=== PATIENT | male | born 1985 | race Caucasian/White ===

== ENCOUNTER 2025-01-29 11:23 | Inpatient (IN) | payer SELFPAY ==
[2025-01-29] VITALS (10 sets, daily range): BP systolic 120–133; BP diastolic 73–99; PULSE 86–131; TEMP 36.7–37.4; O2SAT 96–99; BMI 28.7; BMI 28.1
--- NOTE | 2025-01-29 11:50 | XR_ITS ---
The [address] [address] Patient Name: OLIVA MANN MRN: [id number] date: 1985 Sex: M Assigned Patient Location: ER Current Patient Location: ED.MAIN Accession/Order Number: [id number] Exam Date: 01/29/2025 12:15 Report Date: 01/29/2025 12:36 At the request of: STEPHEN VALENZUELA DO Procedure: XR foot LT 2V XR foot LT 2V 01/29/2025 12:19 PM SIGNS AND SYMPTOMS: ^cellulitis, r/o gas left ankle and foot swelling and redness PROTOCOL: Frontal and lateral radiographs of the left foot COMPARISON: None FINDINGS: The bones are in anatomic alignment. There is no evidence of acute displaced fracture. There is soft tissue swelling which is greatest over the dorsum of the left foot. No subcutaneous emphysema is visualized. No osteolytic or bony destructive process. XR/XR foot LT 2V IMPRESSION: Soft tissue swelling is noted greatest along the dorsum of the foot. No underlying osteolytic or bony destructive process. No subcutaneous emphysema. Impression dictated by: Jarod Hernandez M.D. 01/29/2025 12:36 PM Dictation Location: [place] [address] Electronically authenticated by: [id number] Y Date: 01/29/2025 12:36
[2025-01-29 12:12] LABS: Hematocrit 37.6 % (42.0-54.0); Hemoglobin 12.8 g/dL (14.0-18.0); Immature Granulocytes Abs Auto 0.09 10^3/uL (0.00-0.03); Immature Granulocytes Pct Auto 0.5 % (0.0-0.5); Lymphocytes Absolute Auto 2.0 10^3/uL (1.2-3.8); Mean Corpuscular HGB Conc 34.0 g/dL (29.9-35.2); Mean Corpuscular Hemoglobin 29.0 pg (25.9-34.0); Mean Corpuscular Volume 85.3 fL (80.0-94.0); Platelet Count 397 10^3/uL (150-450); Red Blood Count 4.41 10^6/uL (4.70-6.10); White Blood Count 19.5 10^3/uL (4.0-11.0)
[2025-01-29] MEDS: HYDROMORPHONE HCL 1 MG/ML CARTRIDGE IV (12:17)
[2025-01-29] MEDS: VANCOMYCIN HCL 2,000 MG in 0.9 % SODIUM CHLORIDE 500 ML 250 MG IV (12:18)
[2025-01-29 12:27] LABS: Anion Gap 19.5; Blood Urea Nitrogen 29.0 mg/dL (7.0-18.0); Calcium 9.0 mg/dL (8.5-10.1); Carbon Dioxide 22.2 mmol/L (21.0-32.0); Chloride 97 mmol/L (98-107); Estimated GFR (African America >60 (>=60 mL/min/1.73m^2); Estimated GFR (Non-African Ame 58 (>=60 mL/min/1.73m^2); Glucose 97 mg/dL (74-106); Potassium 3.7 mmol/L (3.5-5.1); Sodium 135 mmol/L (136-145)
[2025-01-29 12:33] LABS: Lactate/Lactic Acid 1.1 mmol/L (0.4-2.0)
[2025-01-29] MEDS: 0.9 % SODIUM CHLORIDE 1,000 ML 1000 ML IV (13:01)
--- NOTE | 2025-01-29 13:28 | PM.HP ---
HPI H&P: HPI History of Present Illness Chief complaint: L LEG PAIN, LLE CELLULITIS Narrative: Patient is a 39-year-old male with medical history as listed below presented to the ER due to worsening left lower extremity pain and swelling over the past 2 to 3 days. Patient denies any fevers or chills or nausea or vomiting or chest pain or shortness of breath however he does report that he was feeling hot at the house, he was having difficulty bearing weight on his left lower extremity. Patient denies any recent injury or wounds or twisting to his ankle or falls or trauma. he decided to come here for further evaluation. Here in the ER, patient noted tachycardic, noted with leukocytosis up to 19.5 . BUN 29 creatinine 1.37. He was noted with left foot and ankle and left brenner below the knee erythema and edema, CRP 18.64, x-ray of the foot showed soft tissue swelling with no evidence of fracture or dislocation or subcutaneous emphysema. Patient was given antibiotics. Blood cultures were collected. Decision was made to admit him for further evaluation and management. 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 Opioid HPI Opioid Management Most Recent Pain and Opioid Data: Last Pain Scale 8 Today, 14:31 Last Pain Assessment Today, 14:31 Review of Systems ROS Status of ROS 10 or more systems reviewed and unremarkable except as noted in history and below PFSH PFSH Medical History (Updated 01/29/25 @ 13:35 by Suki Cabrera) GERD (gastroesophageal reflux disease) ?K21.9 - Gastro-esophageal reflux disease without esophagitis (ICD-10) Surgical History (Updated 01/29/25 @ 13:35 by Suki Cabrera) Hx of inguinal hernia repair ?Z98.890 - Other specified postprocedural states (ICD-10) ?Z87.19 - Personal history of other diseases of the digestive system (ICD-10) Social History (Updated 01/29/25 @ 13:40 by Suki Cabrera) Within the past year, how often did you have a drink containing alcohol: monthly or less Within the past year, how many standard drinks containing alcohol did you have on a typical day: 1 or 2 Within the past year, how often did you have six or more drinks on one occasion: never Total score: 0 Score interpretation: A score less than 4 is consistent with normal alcohol consumption. Smoking status: Current every day smoker Do you use any of these nicotine containing products: e-cigarettes, vaping products and smokeless tobacco Second hand tobacco smoke exposure: Yes Non-prescribed substance use: cannabis (any form) Known occupational exposures/hazards: Yes Known occupational exposures/hazards details: aluminum Highest level of school completed/degree received: Associate degree: academic program Do you want help with school or training: No Are you now , , , , never or living with a partner: In a typical week, how many times do you talk on the telephone with family, friends, or neighbors: once per week How often do you get together with friends or relatives: once per week How often do you attend islam or yazdanism services: 1-3 times per year Do you belong to any clubs or organizations such as islam groups unions, [employer] or athletic groups, or school groups: no Total score: 0 Score interpretation: A score of less than or equal to 1 indicates the most socially isolated. Little interest or pleasure in doing things: not at all Feeling down, depressed, or hopeless: not at all Feel stressed/tense/nervous/anxious/difficulty sleeping: not at all Due to disability, difficulty making decisions: No Do you think of yourself as: straight/heterosexual Gender Identity: male Meds Home Medications and Allergies Home Medications ?Medication ?Instructions ?Recorded ?Confirmed ?Type omeprazole 20 mg capsule,delayed 20 mg PO DAILY 01/29/25 01/29/25 History release Allergies Allergy/AdvReac Type Severity Reaction Status Date / Time No Known Drug Allergies Allergy Verified 01/29/25 11:35 Exam Narrative Exam Narrative: Const General: cooperative HEENT Normal oropharyngeal mucosa without any ulcers or exudates Eyes: Conjunctiva normal Pulmonary Auscultation: clear to auscultation , no crackles, no wheezes Cardiovascular Rate: normal rate Rhythm: regular rhythm Heart Sounds: S1 normal, S2 normal and no murmurs GI Inspection: non-distended Palpation: soft, not firm and nontender. No rigidity or rebound. Deferred Neuro General: alert, awake and oriented x3. No obvious new focal deficit Extrem General: LLE: left foot and ankle erythema and edema. erythema and edema extending from left foot up to below knee. Couple of superficial wounds noted on the anteromedial aspect. Tattoo noted on both legs. Psych Appearance: appropriate affect. Grossly normal Constitutional Vital Signs, click to edit/add: Last Vital Signs Temp 98.1 F 01/29/25 11:28 Pulse 117 H 01/29/25 11:28 Resp 20 01/29/25 11:28 BP 132/99 H 01/29/25 11:28 Pulse Ox 99 01/29/25 11:28 O2 Del Method Room Air 01/29/25 11:28 Results Labs Labs: Short CBC 01/29/25 Range/Units 12:05 WBC 19.5 H (4.0-11.0) 10^3/uL Hgb 12.8 L (14.0-18.0) g/dL Hct 37.6 L (42.0-54.0) % Plt Count 397 (150-450) 10^3/uL BMP 01/29/25 12:05 Sodium 135 L Potassium 3.7 Chloride 97 L Carbon Dioxide 22.2 BUN 29.0 H Creatinine 1.37 H Glucose 97 Calcium 9.0 Assessment and Plan Assessment and Plan (1) Cellulitis: Qualifiers: Laterality: left Site of cellulitis: extremity Site of cellulitis of extremity: lower extremity Qualified Code(s): L03.116 - Cellulitis of left lower limb Plan Cellulitis of left lower extremity -Afebrile here, has leukocytosis up to 19.5, tachycardic, BP and resp stable. -Blood cx collected in ER. follow final results. -X-ray of left foot showed soft tissue swelling, no subcu emphysema. -Elevated ESR, CRP. Trend CRP in am -Start IV antibiotics with vancomycin -IV fluids resuscitation -Pain control as needed -DVT ppx with Lovenox -Repeat labs in am, monitor kidney function, WBC trend, fevers, hemodynamics. Tobacco use: nicotine patch ordered Discussed with patient at bedside, all questions answered, he is in agreement with above plan
--- NOTE | 2025-01-29 13:32 | ED_ITS ---
HPI HPI - General Adult General Chief complaint: Extremity Problem, Nontraumatic Stated complaint: L LEG PAIN Time Seen by Provider: 01/29/25 11:28 Source: patient Mode of arrival: Wheelchair History of Present Illness HPI narrative: Patient is a 39-year-old male presenting to the emergency department for evaluation of left lower extremity pain. Patient states that 2 days ago he started noticing pain, swelling, and redness in the left foot. Over the last 48 hours, the pain/rash is spread to involve the lower part of his calf. Additionally, he feels generally unwell and feverish. He denies any other syste zoe symptoms such as chest pain or shortness of breath. No abdominal pain, nausea, or vomiting. He denies history of diabetes. He states he is a history of IVDU, but has not used intravenous drugs in over 7 years. He denies any trauma to the area. Related Data Home Medications ?Medication ?Instructions ?Recorded ?Confirmed omeprazole 20 mg capsule,delayed 20 mg PO DAILY 01/29/25 release Allergies Allergy/AdvReac Type Severity Reaction Status Date / Time No Known Drug Allergies Allergy Verified 01/29/25 11:35 Opioid HPI Opioid Management Most Recent Opioid Data: Last Pain Scale 8 Today, 11:48 Review of Systems ROS Status of ROS 10 or more systems reviewed and unremark able except as noted in history and below PFSH PFS Social History Little interest or pleasure in doing things: not at all Feeling down, depressed, or hopeless: not at all Exam Narrative Exam Narrative: CONSTITUTIONAL: He appears uncomfortable but nontoxic, answering questions and following commands appropriately SKIN: Was warm and nondiaphoretic EYES: Sclerae white. EARS, NOSE, THROAT: Moist oral mucosa. RESPIRATORY: Clear to auscultation bilaterally, no wheezes, crackles, or stridor, no use of accessory muscles CARDIOVASCULAR: Normal rate and regular rhythm. There is no S3, S4, murmur, rub. 2+ DP pulse bilaterally GASTROINTESTINAL: Abdomen is nondistended. MUSCULOSKELETAL: The left lower extremity from the foot to the mid calf is erythematous, indurated, warm, and tender to the touch. There is no palpable crepitus or drainage. No deformities. NEUROLOGIC: Patient is awake and alert. Good strength and sensation to light touch in the bilateral lower extremities. Constitutional Vital Signs, click to edit/add: Last Vital Signs Temp 98.1 F 01/29/25 11:28 Pulse 117 H 01/29/25 11:28 Resp 20 01/29/25 11:28 BP 132/99 H 01/29/25 11:28 Pulse Ox 99 01/29/25 11:28 O2 Del Method Room Air 01/29/25 11:28 Course Vital Signs Vital signs: Vital Signs Temperature 98.1 F 01/29/25 11:28 Pulse Rate 117 H 01/29/25 11:28 Respiratory Rate 20 01/29/25 11:28 Blood Pressure 132/99 H 01/29/25 11:28 Pulse Oximetry 99 01/29/25 11:28 Oxygen Delivery Method Room Air 01/29/25 11:28 Temperature 98.1 F 01/29/25 11:28 Pulse Rate 117 H 01/29/25 11:28 Respiratory Rate 20 01/29/25 11:28 Blood Pressure 132/99 H 01/29/25 11:28 Pulse Oximetry 99 01/29/25 11:28 Oxygen Delivery Method Room Air 01/29/25 11:28 Medical Decision Making MDM Narrative Medical decision making narrative: Patient is a 39-year-old male presenting to the emergency department for 2-day history of left lower extremity pain, redness, erythema, edema, and generally feeling unwell. His vital signs on arrival were significant for tachycardia, otherwise within normal limits. He is afebrile and hemodynamically stable. Examination as noted above. Patient's history and physical is consistent with cellulitis. There is no crepitus or bulla formation to suggest necrotizing fasciitis. I considered DVT, however he has no risk factors with a Well's Score of 0 making this of lower likelihood. X-rays were obtained to rule out subcutaneous emphysema. IV was es tablished and laboratory studies were obtained. He was empirically treated with IV vancomycin and blood cultures were ordered. He was given 1 L bolus normal saline and IV Dilaudid. X-rays of the left foot independently reviewed interpreted myself and radiology demonstrated no evidence of subcutaneous emphysema or osseous destruction. Laboratory studies were significant for leukocytosis of 19. His ESR and CRP are elevated as well. No other significant electrolyte or metabolic derangement. He does have a mild elevation in his creatinine without baseline for comparison. No lactic acidosis. At this time, the patient does meet sepsis criteria (tachycardia, leukocytosis, and source of infection) and warrants admission to the hospital for IV antibiotics. I discussed the patient with hospitalist, Dr. Foote, who accepted the patient to his service. FINAL IMPRESSION: #Acute sepsis secondary to left lower extremity cellulitis DISPOSITION: Admitted to the hospital CONDITION: Fair Differential Diagnosis Differential Diagnosis: cellulitis, necrotizing fasciitis Medical Records Medical records reviewed: Yes I reviewed the patient's medical records Lab Data Lab results reviewed: Yes I reviewed the patient's lab results Labs: Lab Results 01/29/25 Range/Units 12:05 WBC 19.5 H (4.0-11.0) 10^3/uL RBC 4.41 L (4.70-6.10) 10^6/uL Hgb 12.8 L (14.0-18.0) g/dL Hct 37.6 L (42.0-54.0) % MCV 85.3 (80.0-94.0) fL MCH 29.0 (25.9-34.0) pg MCHC 34.0 (29.9-35.2) g/dL RDW 14.5 (11.0-15.0) % Plt Count 397 (150-450) 10^3/uL MPV 8.5 L (9.5-13.5) fL Neut % (Auto) 82.0 H (43.0-75.0) % Lymph % (Auto) 10.2 L (20.5-60.0) % [place] % (Auto) 7.0 (1.7-12.0) % Eos % (Auto) 0.1 L (0.9-7.0) % Baso % (Auto) 0.2 (0.2-2.0) % Neut # (Auto) 16.0 H (1.4-6.5) 10^3/uL Lymph # (Auto) 2.0 (1.2-3.8) 10^3/uL [place] # (Auto) 1.4 H (0.3-0.8) 10^3/uL Eos # (Auto) 0.0 (0.0-0.7) 10^3/uL Baso # (Auto) 0.0 (0.0-0.1) 10^3/uL Abs Immat Gran (auto) 0.09 H (0.00-0.03) 10^3/uL Imm/Tot Granulo (auto) 0.5 (0.0-0.5) % ESR 45 H (<=15) mm/hr Sodium 135 L (136-145) mmol/L Potassium 3.7 (3.5-5.1) mmol/L Chloride 97 L (98-107) mmol/L Carbon Dioxide 22.2 (21.0-32.0) mmol/L Anion Gap 19.5 BUN 29.0 H (7.0-18.0) mg/dL Creatinine 1.37 H (0.70-1.30) mg/dL Est GFR ( Amer) >60 (>=60 mL/min/1.73m^2) Est GFR (Non-Af Amer) 58 L (>=60 mL/min/1.73m^2) BUN/Creatinine Ratio 21.2 Glucose 97 (74-106) mg/dL Lactate 1.1 (0.4-2.0) mmol/L Calcium 9.0 (8.5-10.1) mg/dL C-Reactive Protein 18.64 H (<=0.50) mg/dL Imaging Data left foot xray: Attestation: I personally reviewed and interpreted this imaging study as follows: Radiologist's impression: ITS Impressions Foot X-Ray 01/29/25 11:50 IMPRESSION: Soft tissue swelling is noted greatest along the dorsum of the foot. No underlying osteolytic or bony destructive process. No subcutaneous emphysema. Impression dictated by: Jarod Hernandez M.D. 01/29/2025 12:36 PM Dictation [email or web address] Electronically authenticated by: [id number] Y Date: 01/29/2025 12:36 Discharge Plan Discharge Chief Complaint: Extremity Problem, Nontraumatic Clinical Impression: Sepsis Cellulitis Qualifiers: Site of cellulitis: extremity Site of cellulitis of extremity: lower extremity Laterality: left Qualified Code(s): L03.116 - Cellulitis of left lower limb Patient Disposition: Admitted As Inpatient Time of Disposition Decision: 13:00 Condition: Fair
[2025-01-29] MEDS: 0.9 % SODIUM CHLORIDE 1,000 ML 100 ML IV (15:00)
[2025-01-29] MEDS: OXYCODONE HCL/ACETAMINOPHEN 5MG/325MG 1 TAB PO ×2 (15:00→20:35)
[2025-01-30] VITALS (19 sets, daily range): BP systolic 111–136; BP diastolic 68–80; PULSE 74–110; TEMP 36.7–36.8; O2SAT 97–98
[2025-01-30] MEDS: VANCOMYCIN HCL 1,250 MG in 0.9 % SODIUM CHLORIDE 250 ML 166.667 MG IV (00:01)
[2025-01-30] MEDS: 0.9 % SODIUM CHLORIDE 1,000 ML 100 ML IV (02:37)
[2025-01-30] MEDS: PANTOPRAZOLE SODIUM 40 MG TABLET.DR PO (06:07)
[2025-01-30 06:32] LABS: Hematocrit 33.2 % (42.0-54.0); Hemoglobin 10.9 g/dL (14.0-18.0); Immature Granulocytes Abs Auto 0.03 10^3/uL (0.00-0.03); Immature Granulocytes Pct Auto 0.3 % (0.0-0.5); Lymphocytes Absolute Auto 2.4 10^3/uL (1.2-3.8); Mean Corpuscular HGB Conc 32.8 g/dL (29.9-35.2); Mean Corpuscular Hemoglobin 28.6 pg (25.9-34.0); Mean Corpuscular Volume 87.1 fL (80.0-94.0); Platelet Count 313 10^3/uL (150-450); Red Blood Count 3.81 10^6/uL (4.70-6.10); White Blood Count 10.8 10^3/uL (4.0-11.0)
[2025-01-30 06:45] LABS: Alanine Aminotransferase 47 U/L (16-63); Albumin Globulin Ratio 0.8; Albumin Level 2.7 g/dL (3.4-5.0); Alkaline Phosphatase 64 U/L (46-116); Anion Gap 10.9; Aspartate Amino Transferase 27 U/L (15-37); Blood Urea Nitrogen 15.0 mg/dL (7.0-18.0); Calcium 7.8 mg/dL (8.5-10.1); Carbon Dioxide 24.8 mmol/L (21.0-32.0); Chloride 106 mmol/L (98-107); Estimated GFR (African America >60 (>=60 mL/min/1.73m^2); Estimated GFR (Non-African Ame >60 (>=60 mL/min/1.73m^2); Globulin 3.2 g/dL; Glucose 95 mg/dL (74-106); Potassium 3.7 mmol/L (3.5-5.1); Sodium 138 mmol/L (136-145); Total Protein 5.9 g/dL (6.4-8.2)
[2025-01-30] MEDS: ENOXAPARIN SODIUM 40 MG/0.4 ML SYRINGE SUBQ (09:19)
[2025-01-30] MEDS: OXYCODONE HCL/ACETAMINOPHEN 5MG/325MG 1 TAB PO (09:21)
--- NOTE | 2025-01-30 10:22 | PM.IMPN1 ---
Progress Note: A&P Assessment and Plan (1) Cellulitis: Qualifiers: Laterality: left Site of cellulitis: extremity Site of cellulitis of extremity: lower extremity Qualified Code(s): L03.116 - Cellulitis of left lower limb Plan Cellulitis of left lower extremity , nonpurulent -Afebrile here, has leukocytosis up to 19.5, tachycardic, BP and resp stable. -Blood cx collected in ER, final results pending -X-ray of left foot showed soft tissue swelling, no subcu emphysema. -Elevated ESR, CRP. -continue IV antibiotics with vancomycin -IV fluids resuscitation -Pain control as needed -DVT ppx with Lovenox -Repeat labs in am, monitor kidney function, WBC trend, fevers, hemodynamics. Tobacco use: nicotine patch ordered Discussed with patient at bedside, all questions answered, he is in agreement with above plan Diet: Cardiac Daily Labs: CBC, BMP Lines/Drains: PIV DVT ppx: Lovenox Code status: Full Status: inpatient for symptom management and awaiting BCx, remains intermittently tachycardic and unable to ambulate at present Internal Medicine - PN: Subj Subjective Interval history: Comfortable in bed, endorses prior history of no opiate abuse for past 8 months, states no IV abuse for past 3 years. Denies any trauma. Exam Narrative Exam Narrative: General: cooperative and tired appearing Orientation: alert, awake and oriented x3 Head: normal to inspection Neck: normal visual inspection Cardio: no JVD, regular rate, regular rhythm Chest palpation & inspection: normal inspection of the chest Resp Effort & Inspection: normal respiratory effort Abd: soft, non-tender, non-distended Extremities: Warm well perfused, LLE with regression of erythema from prior demarked area, slight edema, no abrasions Constitutional Vital Signs, click to edit/add: Last Vital Signs Temp 98.2 F 01/30/25 07:48 Pulse 101 H 01/30/25 09:58 Resp 20 01/30/25 07:48 BP 126/78 01/30/25 07:48 Pulse Ox 97 01/30/25 07:48 O2 Del Method Room Air 01/30/25 07:48 Internal Medicine - PN: Obj Da Labs Labs: Laboratory Results - last 24 hr 01/29/25 01/30/25 12:05 06:02 WBC 19.5 H 10.8 RBC 4.41 L 3.81 L Hgb 12.8 L 10.9 L Hct 37.6 L 33.2 L MCV 85.3 87.1 MCH 29.0 28.6 MCHC 34.0 32.8 RDW 14.5 14.8 Plt Count 397 313 MPV 8.5 L 8.6 L Neut % (Auto) 82.0 H 65.2 Lymph % (Auto) 10.2 L 22.4 [place] % (Auto) 7.0 10.0 Eos % (Auto) 0.1 L 1.9 Baso % (Auto) 0.2 0.2 Neut # (Auto) 16.0 H 7.0 H Lymph # (Auto) 2.0 2.4 [place] # (Auto) 1.4 H 1.1 H Eos # (Auto) 0.0 0.2 Baso # (Auto) 0.0 0.0 Abs Immat Gran (auto) 0.09 H 0.03 Imm/Tot Granulo (auto) 0.5 0.3 ESR 45 H Sodium 135 L 138 Potassium 3.7 3.7 Chloride 97 L 106 Carbon Dioxide 22.2 24.8 Anion Gap 19.5 10.9 BUN 29.0 H 15.0 Creatinine 1.37 H 0.86 Est GFR ( Amer) >60 >60 Est GFR (Non-Af Amer) 58 L >60 BUN/Creatinine Ratio 21.2 17.4 Glucose 97 95 Lactate 1.1 Calcium 9.0 7.8 L Total Bilirubin 0.4 AST 27 ALT 47 Alkaline Phosphatase 64 C-Reactive Protein 18.64 H 15.64 H Total Protein 5.9 L Albumin 2.7 L Globulin 3.2 Albumin/Globulin Ratio 0.8
[2025-01-30] MEDS: VANCOMYCIN HCL 1,250 MG in 0.9 % SODIUM CHLORIDE 250 ML 166 MG IV ×2 (11:22→23:16)
[2025-01-30] MEDS: REMOVE PATCH 1 PATCH TOPICAL (14:46)
[2025-01-31] VITALS (10 sets, daily range): BP systolic 120–124; BP diastolic 73–78; PULSE 64–106; TEMP 36.4–36.6; O2SAT 96–97
[2025-01-31] MEDS: PANTOPRAZOLE SODIUM 40 MG TABLET.DR PO (06:17)
[2025-01-31] MEDS: ENOXAPARIN SODIUM 40 MG/0.4 ML SYRINGE SUBQ (10:19)
--- NOTE | 2025-01-31 10:31 | PM.IMPN1 ---
Progress Note: A&P Assessment and Plan (1) Cellulitis: Qualifiers: Laterality: left Site of cellulitis: extremity Site of cellulitis of extremity: lower extremity Qualified Code(s): L03.116 - Cellulitis of left lower limb Internal Medicine - PN: Subj Subjective Interval history: Comfortable in bed, endorses prior history of no opiate abuse for past 8 months, states no IV abuse for past 3 years. Denies any trauma. Exam Constitutional Vital Signs, click to edit/add: Last Vital Signs Temp 97.5 F L 01/31/25 07:44 Pulse 74 01/31/25 10:14 Resp 20 01/31/25 07:44 BP 124/78 01/31/25 07:44 Pulse Ox 96 01/31/25 07:44 O2 Del Method Room Air 01/31/25 07:44
[2025-01-31 11:10] LABS: Hematocrit 36.2 % (42.0-54.0); Hemoglobin 11.6 g/dL (14.0-18.0); Immature Granulocytes Abs Auto 0.02 10^3/uL (0.00-0.03); Immature Granulocytes Pct Auto 0.2 % (0.0-0.5); Lymphocytes Absolute Auto 2.3 10^3/uL (1.2-3.8); Mean Corpuscular HGB Conc 32.0 g/dL (29.9-35.2); Mean Corpuscular Hemoglobin 28.4 pg (25.9-34.0); Mean Corpuscular Volume 88.7 fL (80.0-94.0); Platelet Count 367 10^3/uL (150-450); Red Blood Count 4.08 10^6/uL (4.70-6.10); White Blood Count 9.7 10^3/uL (4.0-11.0)
[2025-01-31 11:27] LABS: Anion Gap 12.7; Blood Urea Nitrogen 14.0 mg/dL (7.0-18.0); Calcium 8.7 mg/dL (8.5-10.1); Carbon Dioxide 26.5 mmol/L (21.0-32.0); Chloride 107 mmol/L (98-107); Estimated GFR (African America >60 (>=60 mL/min/1.73m^2); Estimated GFR (Non-African Ame >60 (>=60 mL/min/1.73m^2); Glucose 111 mg/dL (74-106); Potassium 4.2 mmol/L (3.5-5.1); Sodium 142 mmol/L (136-145)
[2025-01-31] MEDS: VANCOMYCIN HCL 1,250 MG in 0.9 % SODIUM CHLORIDE 250 ML 166 MG IV (12:07)
--- NOTE | 2025-01-31 12:13 | PM.DS1 ---
DS: Providers Provider Date of admission: 01/29/25 14:00 Primary care physician: Non-Staff PhysicianMD Admitting clinician: MARIJA CONTRERAS Attending physician on admission: MARIJA CONTRERAS Attending physician on discharge: ELIS FREEDMAN Discharging clinician: ELIS FREEDMAN Anticipated date of discharge: 01/31/25 DS: Diagnosis Discharge Diagnosis (1) Cellulitis: Qualifiers: Laterality: left Site of cellulitis: extremity Site of cellulitis of extremity: lower extremity Qualified Code(s): L03.116 - Cellulitis of left lower limb DS: Summary Hospital Course Hospital Course: Blaze Kolb is a 39-year-old male with history of opiate abuse (8 months sober, 3 years since last IV use) presented to the ER due to worsening left lower extremity pain and swelling over the past 2 to 3 days, found to have significant erythema to mid calf, no obvious lesion or trauma, admitted for sepsis 2/2 non-purulent severe cellulitis. Symptoms and leukocytosis rapidly improved with vancomycin, discharged 01/31/25 with additional 10 days of linezolid due to severity of cellulitis and h/o IV drug use. Time Spent with Patient Time attestation: Total time spent providing and/or coordinating discharge services: Exam Narrative Exam Narrative: General: cooperative and tired appearing Orientation: alert, awake and oriented x3 Head: normal to inspection Neck: normal visual inspection Cardio: no JVD, regular rate, regular rhythm Chest palpation & inspection: normal inspection of the chest Resp Effort & Inspection: normal respiratory effort Abd: soft, non-tender, non-distended Extremities: Warm well perfused, slight bruising in L foot lateral and dorsal, no visible lesions other than slight abrasion on mid brenner Constitutional Vital Signs, click to edit/add: Last Vital Signs Temp 97.5 F L 01/31/25 07:44 Pulse 106 H 01/31/25 11:51 Resp 20 01/31/25 07:44 BP 124/78 01/31/25 07:44 Pulse Ox 96 01/31/25 07:44 O2 Del Method Room Air 01/31/25 07:44 DS: Data Data Completed and Pending Labs on day of discharge: Labs from last 24 hours 01/31/25 10:39 WBC 9.7 RBC 4.08 L Hgb 11.6 L Hct 36.2 L MCV 88.7 MCH 28.4 MCHC 32.0 RDW 15.1 H Plt Count 367 MPV 9.1 L Neut % (Auto) 64.8 Lymph % (Auto) 23.3 [place] % (Auto) 8.6 Eos % (Auto) 2.7 Baso % (Auto) 0.4 Neut # (Auto) 6.3 Lymph # (Auto) 2.3 [place] # (Auto) 0.8 Eos # (Auto) 0.3 Baso # (Auto) 0.0 Abs Immat Gran (auto) 0.02 Imm/Tot Granulo (auto) 0.2 Sodium 142 Potassium 4.2 Chloride 107 Carbon Dioxide 26.5 Anion Gap 12.7 BUN 14.0 Creatinine 0.81 Est GFR ( Amer) >60 Est GFR (Non-Af Amer) >60 BUN/Creatinine Ratio 17.3 Glucose 111 H Calcium 8.7 Vancomycin Trough 6.9 Discharge Plan Discharge Disposition: Home, Self-Care Condition: Fair Discharge Medications: New linezolid 600 mg tablet 600 mg PO BID 10 Days Qty: 20 0RF Continued omeprazole 20 mg capsule,delayed release(DR/EC) 20 mg PO DAILY Print Language: Fijian Patient Instructions: Linezolid (By mouth), Cellulitis (GEN) Forms: Portal Instructions Follow Up Appointments: Pt instructed to try to find and follow up with PCP in his home [facility] Discharge Date/Time: 01/31/25 14:43
--- NOTE | 2025-02-02 14:20 | CM.NOTE ---
I attempted to call the pt for a discharge follow up call but no one answered on 02/01/2025 or 02/02/2025
--- NOTE | 2025-02-03 12:54 | CM.DCFOLLOWU ---
3rd attempt 02/03/25, no answer
== END 2025-01-31 14:43 | disposition home or self-care (01) | DRG 872 ==
LOC: ER 13:05 → MS 14:25
PROVIDERS: Student in an Organized Health Care Education/Training Program; Admitting Provider Internal Medicine; Emergency Provider Student in an Organized Health Care Education/Training Program; Visit Provider Internal Medicine
DX: A41.9 Sepsis, unspecified organism (principal); L03.116 Cellulitis of left lower limb; F17.290 Nicotine dependence, other tobacco product, uncomplicated; K21.9 Gastro-esophageal reflux disease without esophagitis; F11.11 Opioid abuse, in remission
CPT/HCPCS: 36415; 73620; 80048; 80053; 80202; 83605; 85025; 85652; 86140; 87040; 96365; 96366; 96375; 99285; 99406; J1171; J1650; J3373